=== PATIENT | female | born 1995 | race American Indian/Alaskan Native ===

== ENCOUNTER 2016-12-13 22:33 | Emergency (ER) | payer MEDICAID ==
[2016-12-13 23:58] VITALS: BP 139/92
[2016-12-14 00:46] LABS: Basophils % (Auto) 0.9 % (0.0-1.8); Eosinophils % (Auto) 2.1 % (0.0-4.3); Hematocrit 39.2 % (30.3-42.9); Hemoglobin 13.3 gm/dl (10.1-14.3); Mean Corpuscular HGB Conc 34 % (30-34); Mean Corpuscular Hemoglobin 29 pg (28-32); Mean Corpuscular Volume 87 fl (79-97); Platelet Count 291 K/mm3 (140-440); Red Blood Count 4.52 M/mm3 (3.65-5.03); Red Cell Distribution Width 13.1 % (13.2-15.2)
[2016-12-14 01:01] LABS: Anion Gap 16 mmol/L; BUN/Creatinine Ratio 10; Blood Urea Nitrogen 9 mg/dL (7-17); Calcium 9.4 mg/dL (8.4-10.2); Carbon Dioxide 28 mmol/L (22-30); Chloride 94.6 mmol/L (98-107); Glucose 289 mg/dL (65-100); Potassium 3.9 mmol/L (3.6-5.0); Sodium 135 mmol/L (137-145)
--- NOTE | 2016-12-14 01:31 | Ultrasound Report ---
FINAL REPORT EXAM: US OB \T\lt; = 14 WEEKS FETUS HISTORY: vaginal bleeding TECHNIQUE: Transabdominal imaging was obtained of the pelvis. FINDINGS: The uterus measures 8.2 cm x 3.8 cm x 4 cm. There is no evidence of an IUP at this time. The endometrial thickness is 12.3 millimeters. Free fluid is not seen. The right ovary is normal in size contour and echotexture measuring 2.8 cm x 2.2 cm x 2.4 cm. The left lobe measures 3.1 cm x 2.0 cm x 2.4 cm. The adnexa are unremarkable. IMPRESSION: Normal-appearing uterus and ovaries. No evidence of an IUP at this time.
--- NOTE | 2016-12-14 01:32 | Ultrasound Report ---
FINAL REPORT EXAM: US OB TRANSVAGINAL HISTORY: vaginal bleeding TECHNIQUE: Routine transvaginal imaging was obtained of the pelvis. Doppler interrogation of the uterus was obtained. FINDINGS: The uterus is anteverted measuring 8.2 cm x 3.8 cm x 4 cm. There is no evidence of an IUP at this time. The endometrial thickness is 12.3 millimeters. Free fluid is not seen. The maternal ovaries are appropriate size contour and echotexture. The right ovary measures 2.8 cm x 2.2 cm x 2.4 cm. The left ovary measures 3.1 cm x 2.0 cm x 2.4 cm. IMPRESSION: Normal-appearing uterus and ovaries. No evidence of an IUP or ectopic at this time.
== END 2016-12-14 05:22 | disposition left against medical advice (07) ==
LOC: ED 22:33
DX: R10.9 Unspecified abdominal pain (principal); Z53.21 Procedure and treatment not carried out due to patient leaving prior to being seen by health care provider
CPT/HCPCS: 36415; 76801; 76817; 80048; 84703; 85025

== ENCOUNTER 2016-12-26 09:40 | Emergency (ER) | payer MEDICAID ==
[2016-12-26 11:36] LABS: Basophils % (Auto) 0.6 % (0.0-1.8); Eosinophils % (Auto) 2.1 % (0.0-4.3); Hematocrit 41.2 % (30.3-42.9); Hemoglobin 13.9 gm/dl (10.1-14.3); Mean Corpuscular HGB Conc 34 % (30-34); Mean Corpuscular Hemoglobin 29 pg (28-32); Mean Corpuscular Volume 85 fl (79-97); Platelet Count 317 K/mm3 (140-440); Red Blood Count 4.85 M/mm3 (3.65-5.03); White Blood Count 8.8 K/mm3 (4.5-11.0)
[2016-12-26 11:55] LABS: Alanine Aminotransferase 29 units/L (7-56); Albumin 4.3 g/dL (3.9-5); Alkaline Phosphatase 162 units/L (35-129); Anion Gap 19 mmol/L; BUN/Creatinine Ratio 9; Blood Urea Nitrogen 8 mg/dL (7-17); Calcium 9.8 mg/dL (8.4-10.2); Carbon Dioxide 29 mmol/L (22-30); Chloride 88.1 mmol/L (98-107); Lipase 28 units/L (13-60); Potassium 4.7 mmol/L (3.6-5.0); Sodium 131 mmol/L (137-145); Total Protein 8.7 g/dL (6.3-8.2)
[2016-12-26 12:08] LABS: Glucose 557 mg/dL (65-100)
[2016-12-26] MEDS ORDERED: NACL 0.9% 1000 ML 1,000 ML IV ONE ×2 (13:22→13:30)
--- NOTE | 2016-12-26 13:31 | Emergency Department Report ---
ED General Adult HPI - General Chief complaint: Abdominal Pain Stated complaint: VOMITING, BLURRED VISION Time Seen by Provider: 12/26/16 13:17 Source: patient, RN notes reviewed, old records reviewed Mode of arrival: Ambulatory Limitations: No Limitations - History of Present Illness Initial comments: This is a 21-year-old female who was previously unknown to this provider. She does not have a local primary care doctor, and she denies chronic medical conditions. She presents to the ER with close difficulty catching my breath" also complains diffuse abdominal cramping, nausea, vomiting, diarrhea, decreased appetite, nonspecific blurry vision. Her symptoms are constant. They have no exacerbating or relieving factors. She has no dysuria or hematuria. No fevers or chills. No chest pain. She is not diabetic as far she is aware of. -: Gradual Location: abdomen Quality: aching Consistency: constant Improves with: none Worsens with: none Associated Symptoms: loss of appetite, malaise, shortness of breath, weakness. denies: chest pain - Related Data Previous Rx's Medication Instructions Recorded Last Taken Type Clotrimazole 45 gm VG QHS #3 cream.appl 12/26/16 Unknown Rx Ondansetron [Zofran Odt] 4 mg PO Q8HR PRN #20 tab.rapdis 12/26/16 Unknown Rx metFORMIN [Glucophage] 500 mg PO QDAY #60 tab 12/26/16 Unknown Rx Allergies Allergy/AdvReac Type Severity Reaction Status Date / Time No Known Allergies Allergy Unverified 12/13/16 23:58 ED Review of Systems ROS: Stated complaint: VOMITING, BLURRED VISION Other details as noted in HPI Constitutional: malaise. denies: fever Eyes: denies: vision change ENT: denies: epistaxis Respiratory: shortness of breath Cardiovascular: denies: chest pain Gastrointestinal: abdominal pain Genitourinary: frequency. denies: dysuria Musculoskeletal: denies: back pain Skin: lesions Neurological: weakness ED Past Medical Hx - Past Medical History Previous Medical History?: No - Surgical History Past Surgical History?: No - Social History Smoking Status: Current Every Day Smoker Substance Use Type: Alcohol - Medications Home Medications: Home Medications Medication Instructions Recorded Confirmed Last Taken Type Clotrimazole 45 gm VG QHS #3 cream.appl 12/26/16 Unknown Rx Ondansetron [Zofran Odt] 4 mg PO Q8HR PRN #20 tab.rapdis 12/26/16 Unknown Rx metFORMIN [Glucophage] 500 mg PO QDAY #60 tab 12/26/16 Unknown Rx ED Physical Exam - General Limitations: No Limitations General appearance: alert, in no apparent distress - Head Head exam: Present: atraumatic, normocephalic - Eye Eye exam: Present: normal appearance, EOMI. Absent: nystagmus - ENT ENT exam: Present: normal exam, normal orophraynx, mucous membranes moist, normal external ear exam - Neck Neck exam: Present: normal inspection, full ROM - Respiratory Respiratory exam: Present: normal lung sounds bilaterally, other (on the left lateral breast, there is a punctate erythematous lesion, with minimal induration. There is no streaking, crepitus or fluctuance. During the breast examination, escorted by viktor Tapia). Absent: respiratory distress, chest wall tenderness - Cardiovascular Cardiovascular Exam: Present: normal rhythm, tachycardia, normal heart sounds. Absent: systolic murmur, diastolic murmur, rubs, gallop - GI/Abdominal GI/Abdominal exam: Present: soft, normal bowel sounds. Absent: distended, tenderness, guarding, rebound, rigid, pulsatile mass - Extremities Exam Extremities exam: Present: normal inspection, full ROM, normal capillary refill. Absent: pedal edema, joint swelling, calf tenderness - Back Exam Back exam: Present: normal inspection, full ROM. Absent: tenderness, paraspinal tenderness - Neurological Exam Neurological exam: Present: alert, oriented X3, normal gait, other (Extraocular movements intact. Tongue midline. No facial droop. Facial sensation intact to light touch in the V1, V2, V3 distribution bilaterally. 5 and 5 strength in 4 extremities.. Sensation is intact to light touch in 4 extremities.). Absent : motor sensory deficit - Psychiatric Psychiatric exam: Present: anxious - Skin Skin exam: Present: warm, erythema ED Course Vital Signs 12/26/16 12/26/16 12/26/16 10:48 14:00 14:16 Temperature 98.5 F Pulse Rate 100 H 92 H 79 Respiratory 20 22 17 Rate Blood Pressure 125/87 103/73 103/73 O2 Sat by Pulse 97 96 100 Oximetry 12/26/16 12/26/16 12/26/16 14:30 14:46 15:00 Temperature Pulse Rate 75 82 101 H Respiratory 13 11 L 15 Rate Blood Pressure 110/72 110/72 110/72 O2 Sat by Pulse 100 100 100 Oximetry - Reevaluation(s) Reevaluation #1: 12/26/16 14:17 Differential diagnosis, including but not limited to: Pneumonia, new onset diabetes, diabetic ketoacidosis, urinary tract infection Assessment and plan: 12/26/16 14:17 21-year-old female with nonspecific numerous constitutional symptoms. She is afebrile with reassuring vital signs, clinically sober, walks with steady gait, has a GCS of 15, with an anion score of 0. Visual acuity is intact bilaterally to direct confrontation, finger counting, color perception, reading at a close distance. Urinalysis is not consistent with urinary tract infection, abdomen is soft and benign, breast exam done shows a punctate erythematous lesion, may be very early cellulitis, less than 2 cm, does not require incision and drainage. She is hyperglycemic without anion gap acidosis. 3 the chest is pending, patient given IV fluids and insulin. The patient is in no distress at this time, and it texting on a cellular phone. Reevaluation #2: 12/26/16 14:57 X-ray of the chest is negative. Accu-Chek is improved. Tachycardia resolved. Patient is resting comfortably in no distress. Patient's left breast lesion can be cared for with soap and water and general hygiene. Patient will be started empirically on metformin. She is instructed to follow-up in outpatient primary care doctor. Return precautions are reviewed. Reevaluation #3: 12/27/16 15:36 Reevaluation #4: 12/26/16 15:54 Gynecologic examination: Escorted by nurse Kavitha Crocker: Whitish vaginal discharge is noted. This is suggestive of a yeast infection. Patient is instructed as to the importance of glycemic control. She will be discharged with clotrimazole prescription. ED Medical Decision Making - Lab Data Result diagrams: 12/26/16 11:20 12/26/16 11:20 Vital Signs 12/26/16 12/26/16 10:48 14:00 Temperature 98.5 F Pulse Rate 100 H 92 H Respiratory 20 22 Rate Blood Pressure 125/87 103/73 O2 Sat by Pulse 97 96 Oximetry Lab Results 12/26/16 12/26/16 12/26/16 Range/Units 11:20 11:20 13:20 WBC 8.8 (4.5-11.0) K/mm3 RBC 4.85 (3.65-5.03) M/mm3 Hgb 13.9 (10.1-14.3) gm/dl Hct 41.2 (30.3-42.9) % MCV 85 (79-97) fl MCH 29 (28-32) pg MCHC 34 (30-34) % RDW 13.0 L (13.2-15.2) % Plt Count 317 (140-440) K/mm3 Lymph % (Auto) 24.5 (13.4-35.0) % [place] % (Auto) 7.8 H (0.0-7.3) % Eos % (Auto) 2.1 (0.0-4.3) % Baso % (Auto) 0.6 (0.0-1.8) % Lymph # 2.2 (1.2-5.4) K/mm3 [place] # 0.7 (0.0-0.8) K/mm3 Eos # 0.2 (0.0-0.4) K/mm3 Baso # 0.1 (0.0-0.1) K/mm3 Seg Neutrophils % 65.0 (40.0-70.0) % Seg Neutrophils # 5.7 (1.8-7.7) K/mm3 Sodium 131 L (137-145) mmol/L Potassium 4.7 (3.6-5.0) mmol/L Chloride 88.1 L (98-107) mmol/L Carbon Dioxide 29 (22-30) mmol/L Anion Gap 19 mmol/L BUN 8 (7-17) mg/dL Creatinine 0.9 (0.7-1.2) mg/dL Estimated GFR > 60 ml/min BUN/Creatinine Ratio 9 % Glucose 557 H* (65-100) mg/dL Calcium 9.8 (8.4-10.2) mg/dL Total Bilirubin 0.40 (0.1-1.2) mg/dL AST 19 (5-40) units/L ALT 29 (7-56) units/L Alkaline Phosphatase 162 H (35-129) units/L Total Protein 8.7 H (6.3-8.2) g/dL Albumin 4.3 (3.9-5) g/dL Albumin/Globulin Ratio 1.0 % Lipase 28 (13-60) units/L Urine Color Straw (Yellow) Urine Turbidity Clear (Clear) Urine pH 6.0 (5.0-7.0) Ur Specific [place] 1.026 (1.003-1.030) Urine Protein <15 mg/dl (Negative) mg/dL Urine Glucose (UA) >=500 (Negative) mg/dL Urine Ketones 20 (Negative) mg/dL Urine Blood Neg (Negative) Urine Nitrite Neg (Negative) Urine Bilirubin Neg (Negative) Urine Urobilinogen < 2.0 (<2.0) mg/dL Ur Leukocyte Esterase Neg (Negative) Urine WBC (Auto) 2.0 (0.0-6.0) /HPF Urine RBC (Auto) < 1.0 (0.0-6.0) /HPF U Epithel Cells (Auto) < 1.0 (0-13.0) /HPF Urine Mucus Few /HPF Urine HCG, Qual (Negative) 12/26/16 Range/Units 13:20 WBC (4.5-11.0) K/mm3 RBC (3.65-5.03) M/mm3 Hgb (10.1-14.3) gm/dl Hct (30.3-42.9) % MCV (79-97) fl MCH (28-32) pg MCHC (30-34) % RDW (13.2-15.2) % Plt Count (140-440) K/mm3 Lymph % (Auto) (13.4-35.0) % [place] % (Auto) (0.0-7.3) % Eos % (Auto) (0.0-4.3) % Baso % (Auto) (0.0-1.8) % Lymph # (1.2-5.4) K/mm3 [place] # (0.0-0.8) K/mm3 Eos # (0.0-0.4) K/mm3 Baso # (0.0-0.1) K/mm3 Seg Neutrophils % (40.0-70.0) % Seg Neutrophils # (1.8-7.7) K/mm3 Sodium (137-145) mmol/L Potassium (3.6-5.0) mmol/L Chloride (98-107) mmol/L Carbon Dioxide (22-30) mmol/L Anion Gap mmol/L BUN (7-17) mg/dL Creatinine (0.7-1.2) mg/dL Estimated GFR ml/min BUN/Creatinine Ratio % Glucose (65-100) mg/dL Calcium (8.4-10.2) mg/dL Total Bilirubin (0.1-1.2) mg/dL AST (5-40) units/L ALT (7-56) units/L Alkaline Phosphatase (35-129) units/L Total Protein (6.3-8.2) g/dL Albumin (3.9-5) g/dL Albumin/Globulin Ratio % Lipase (13-60) units/L Urine Color (Yellow) Urine Turbidity (Clear) Urine pH (5.0-7.0) Ur Specific [place] (1.003-1.030) Urine Protein (Negative) mg/dL Urine Glucose (UA) (Negative) mg/dL Urine Ketones (Negative) mg/dL Urine Blood (Negative) Urine Nitrite (Negative) Urine Bilirubin (Negative) Urine Urobilinogen (<2.0) mg/dL Ur Leukocyte Esterase (Negative) Urine WBC (Auto) (0.0-6.0) /HPF Urine RBC (Auto) (0.0-6.0) /HPF U Epithel Cells (Auto) (0-13.0) /HPF Urine Mucus /HPF Urine HCG, Qual Negative (Negative) - Radiology Data Radiology results: pending, image reviewed interpreted by me: X-ray the chest is negative for acute disease Critical care attestation.: If time is entered above; I have spent that time in minutes in the direct care of this critically ill patient, excluding procedure time. ED Disposition Clinical Impression: Hyperglycemia Disposition: DC-01 TO HOME OR SELFCARE Is pt being admited?: No Does the pt Need Aspirin: No Condition: Stable Instructions: Diabetes Mellitus Type 2 in Adults (ED) Additional Instructions: As we discussed, symptoms most likely coming from new onset adult diabetes. Decrease consumption of simple sugars, starches, carbohydrates. Consume plenty of fruits, fibers, vegetables. Begin a physical fitness activity/regime. Follow-up with the primary care doctor within the next month. It is very important to follow-up with an outpatient primary care doctor. Long-term complications of diabetes and hyperglycemia includes stroke, heart attack, disability, , paralysis, loss of quality of life. Return to the ER right away with few pain, worse pain, migration of pain, fevers, chills, lethargy, irritability, projectile vomiting, change in mental status, inability to tolerate liquid feeds. Metformin is a very good medication for diabetes, complications include abdominal cramping, nausea and vomiting. Take the metformin as directed, take the nausea medication as needed. Prescriptions: Clotrimazole 45 gm VG QHS #3 cream.appl metFORMIN [Glucophage] 500 mg PO QDAY #60 tab Ondansetron [Zofran Odt] 4 mg PO Q8HR PRN #20 tab.rapdis PRN Reason: Nausea Referrals: PRIMARY CARE, [Primary Care Provider] - 3-5 Days AVELINO GOMEZ MD [Staff Physician] - 3-5 Days [facility] [Provider Group] - 3-5 Days
[2016-12-26 14:09] LABS: Bilirubin,Urine NEG (Negative); Blood,Urine NEG (Negative); Ketones,Urine 20 mg/dL (Negative); Leukocyte Esterase,Urine NEG (Negative); Mucus,Urine FEW /HPF; Nitrite,Urine NEG (Negative); Protein,Urine <15 mg/dL mg/dL (Negative); RBC,Urine < 1.0 /HPF (0.0-6.0); Urobilinogen,Urine < 2.0 mg/dL (<2.0)
[2016-12-26 14:55] VITALS: BP 110/72
--- NOTE | 2016-12-26 15:09 | XRay Report ---
Single view chest: History: Dyspnea. Findings: Normal cardiomediastinal silhouette. Trachea is midline. No consolidation, pneumothorax or pleural effusion. Impression: No acute cardiopulmonary findings.
== END 2016-12-26 16:26 | disposition home or self-care (01) ==
LOC: ED 09:40
DX: R73.9 Hyperglycemia, unspecified (principal); R06.00 Dyspnea, unspecified; R10.84 Generalized abdominal pain; R11.2 Nausea with vomiting, unspecified; R63.0 Anorexia; F17.200 Nicotine dependence, unspecified, uncomplicated
CPT/HCPCS: 36415; 71010; 80053; 81001; 81025; 82962; 83690; 85025; 87210; 87591; 96361; 96374; 99284; J7030; J1815

== ENCOUNTER 2017-01-12 12:03 | Inpatient (IN) | payer MEDICAID ==
--- NOTE | 2017-01-12 12:48 | Emergency Department Report ---
Chief Complaint: Hyperglycemia Stated Complaint: HYPERGLYCEMIA - HPI History of Present Illness: pt is 21 y/o aaf dx with DMII on metformin seen on 12/26/2016 for same advises unable to follow up with pcp referral due to finances presents today for polydypsia, polyuria, dizziness with intermittent n/v last n/v this am. - Exam Vital Signs: Vital Signs 01/12/17 12:22 Temperature 98.5 F Pulse Rate 98 H Respiratory 16 Rate Blood Pressure 138/87 O2 Sat by Pulse 98 Oximetry MSE screening note: Focused history and physical exam performed. Due to findings the following was ordered: ED Disposition for MSE Condition: Stable
[2017-01-12 13:11] LABS: Eosinophils % (Auto) 2.7 % (0.0-4.3); Hematocrit 42.5 % (30.3-42.9); Hemoglobin 14.2 gm/dl (10.1-14.3); Mean Corpuscular HGB Conc 33 % (30-34); Mean Corpuscular Hemoglobin 28 pg (28-32); Mean Corpuscular Volume 85 fl (79-97); Platelet Count 328 K/mm3 (140-440); Red Blood Count 5.03 M/mm3 (3.65-5.03); Red Cell Distribution Width 13.1 % (13.2-15.2); White Blood Count 6.1 K/mm3 (4.5-11.0)
[2017-01-12 13:19] LABS: Alanine Aminotransferase 16 units/L (7-56); Albumin 4.5 g/dL (3.9-5); Albumin/Globulin Ratio 1.1 %; Alkaline Phosphatase 136 units/L (35-129); Anion Gap 20 mmol/L; BUN/Creatinine Ratio 10; Blood Urea Nitrogen 8 mg/dL (7-17); Calcium 9.8 mg/dL (8.4-10.2); Carbon Dioxide 25 mmol/L (22-30); Chloride 90.3 mmol/L (98-107); Glucose 388 mg/dL (65-100); Potassium 4.1 mmol/L (3.6-5.0); Sodium 131 mmol/L (137-145); Total Protein 8.7 g/dL (6.3-8.2)
[2017-01-13] MEDS ORDERED: NACL 0.9% 1000 ML 1,000 ML IV ONE ×2 (00:02→00:03)
[2017-01-13] MEDS ORDERED: ZOFRAN IV ONE (00:16)
--- NOTE | 2017-01-13 00:36 | Emergency Department Report ---
ED General Adult HPI - General Chief complaint: Hyperglycemia Stated complaint: HYPERGLYCEMIA Time Seen by Provider: 01/13/17 00:02 Source: patient Mode of arrival: Ambulatory Limitations: No Limitations - History of Present Illness Initial comments: 21-year-old female with a past medical history recently diagnosed diabetes presents to the hospital with uncontrolled blood sugars. Patient was seen and evaluated here in the ER on December 26. Patient is diagnosed with diabetes and started on metformin 500 mg twice a day. Patient is taking this medication twice a day despite discharge summary that states once a day prescribed. Patient states her sugar continues to be uncontrolled and she is experiencing increased thirst, increased urinary frequency, visual disturbances, and generalized weakness and fatigue. Patient has had vomiting after food intake times one month but states she is tolerating water. She has not follow-up since her ER visit a recently discovered she has active Medicaid insurance. No abdominal pain, fever, or dysuria reported. Severity scale (0 -10): 0 - Related Data Previous Rx's Medication Instructions Recorded Last Taken Type Clotrimazole 45 gm VG QHS #3 cream.appl 12/26/16 Unknown Rx Ondansetron [Zofran Odt] 4 mg PO Q8HR PRN #20 tab.rapdis 12/26/16 Unknown Rx metFORMIN [Glucophage] 500 mg PO QDAY #60 tab 12/26/16 Unknown Rx Allergies Allergy/AdvReac Type Severity Reaction Status Date / Time No Known Allergies Allergy Verified 01/13/17 01:25 ED Review of Systems ROS: Stated complaint: HYPERGLYCEMIA Other details as noted in HPI Comment: All other systems reviewed and negative Other: Constitutional: No fevers chills Eyes: No eye pain visual changes ENT: No ear pain or throat pain Neck: Denies pain Respiratory: Denies cough wheezing shortness of breath Cardiovascular: Denies chest pain, palpitations, syncope GI: Denies abdominal pain,diarrhea : Denies dysuria Musculoskeletal: Denies back pain, joint swelling Skin: Denies rash, lesions, erythema Neurologic: Denies headache, numbness, weakness Psychiatric: Denies suicidal ideation, hallucinations ED Past Medical Hx - Past Medical History Hx Diabetes: Yes - Surgical History Past Surgical History?: No - Social History Smoking Status: Current Every Day Smoker Substance Use Type: None - Medications Home Medications: Home Medications Medication Instructions Recorded Confirmed Last Taken Type Clotrimazole 45 gm VG QHS #3 cream.appl 12/26/16 Unknown Rx Ondansetron [Zofran Odt] 4 mg PO Q8HR PRN #20 tab.rapdis 12/26/16 Unknown Rx metFORMIN [Glucophage] 500 mg PO QDAY #60 tab 12/26/16 Unknown Rx ED Physical Exam - General Limitations: No Limitations - Other Other exam information: General: No limitations, patient is alert in no acute distress Head exam: Atraumatic, normocephalic Eyes exam: Normal appearance, pupils equal reactive to light, extraocular movements intact ENT: Moist mucous membrane, normal oropharynx Neck exam: Normal inspection, full range of motion, no meningismus nontender Respiratory exam: Clear to auscultation bilateral, no wheezes, rales, crackles Cardiovascular: Normal rate and rhythm, normal heart sounds Abdomen: Soft, nondistended, and nontender, with normal bowel sounds, no rebound, or guarding Extremity: Full range of motion normal inspection no deformity Back: Normal Inspection, full range of motion, no tenderness Neurologic: Alert, oriented x3, cranial nerves intact, no motor or sensory deficit Psychiatric: normal affect, normal mood Skin: Warm, dry, intact ED Course Vital Signs 01/12/17 01/12/17 12:22 23:02 Temperature 98.5 F 97.5 F L Pulse Rate 98 H 85 Respiratory 16 18 Rate Blood Pressure 138/87 129/85 O2 Sat by Pulse 98 100 Oximetry - Reevaluation(s) Reevaluation #1: 01/13/17 02:01 Patient treated with Zofran, normal saline and insulin in the ED ED Medical Decision Making - Lab Data Result diagrams: 01/12/17 12:48 01/12/17 12:48 Lab Results 01/12/17 01/12/17 01/12/17 Range/Units 12:25 12:48 12:48 WBC 6.1 (4.5-11.0) K/mm3 RBC 5.03 (3.65-5.03) M/mm3 Hgb 14.2 (10.1-14.3) gm/dl Hct 42.5 (30.3-42.9) % MCV 85 (79-97) fl MCH 28 (28-32) pg MCHC 33 (30-34) % RDW 13.1 L (13.2-15.2) % Plt Count 328 (140-440) K/mm3 Lymph % (Auto) 32.5 (13.4-35.0) % [place] % (Auto) 9.2 H (0.0-7.3) % Eos % (Auto) 2.7 (0.0-4.3) % Baso % (Auto) 1.0 (0.0-1.8) % Lymph # 2.0 (1.2-5.4) K/mm3 [place] # 0.6 (0.0-0.8) K/mm3 Eos # 0.2 (0.0-0.4) K/mm3 Baso # 0.1 (0.0-0.1) K/mm3 Seg Neutrophils % 54.6 (40.0-70.0) % Seg Neutrophils # 3.3 (1.8-7.7) K/mm3 VBG pH (7.320-7.420) Sodium 131 L (137-145) mmol/L Potassium 4.1 (3.6-5.0) mmol/L Chloride 90.3 L (98-107) mmol/L Carbon Dioxide 25 (22-30) mmol/L Anion Gap 20 mmol/L BUN 8 (7-17) mg/dL Creatinine 0.8 (0.7-1.2) mg/dL Estimated GFR > 60 ml/min BUN/Creatinine Ratio 10 % Glucose 388 H (65-100) mg/dL POC Glucose 392 H (70-105) Ketones Quantitative (Negative) Calcium 9.8 (8.4-10.2) mg/dL Total Bilirubin 0.50 (0.1-1.2) mg/dL AST 13 (5-40) units/L ALT 16 (7-56) units/L Alkaline Phosphatase 136 H (35-129) units/L Total Protein 8.7 H (6.3-8.2) g/dL Albumin 4.5 (3.9-5) g/dL Albumin/Globulin Ratio 1.1 % Urine Color (Yellow) Urine Turbidity (Clear) Urine pH (5.0-7.0) Ur Specific [place] (1.003-1.030) Urine Protein (Negative) mg/dL Urine Glucose (UA) (Negative) mg/dL Urine Ketones (Negative) mg/dL Urine Blood (Negative) Urine Nitrite (Negative) Ur Reducing Substances Urine Bilirubin (Negative) Urine Ictotest Urine Urobilinogen (<2.0) mg/dL Ur Leukocyte Esterase (Negative) Urine WBC (Auto) (0.0-6.0) /HPF Urine RBC (Auto) (0.0-6.0) /HPF U Epithel Cells (Auto) (0-13.0) /HPF Hyaline Casts /LPF Urine HCG, Qual (Negative) 01/12/17 01/12/17 01/12/17 Range/Units 12:48 22:56 23:04 WBC (4.5-11.0) K/mm3 RBC (3.65-5.03) M/mm3 Hgb (10.1-14.3) gm/dl Hct (30.3-42.9) % MCV (79-97) fl MCH (28-32) pg MCHC (30-34) % RDW (13.2-15.2) % Plt Count (140-440) K/mm3 Lymph % (Auto) (13.4-35.0) % [place] % (Auto) (0.0-7.3) % Eos % (Auto) (0.0-4.3) % Baso % (Auto) (0.0-1.8) % Lymph # (1.2-5.4) K/mm3 [place] # (0.0-0.8) K/mm3 Eos # (0.0-0.4) K/mm3 Baso # (0.0-0.1) K/mm3 Seg Neutrophils % (40.0-70.0) % Seg Neutrophils # (1.8-7.7) K/mm3 VBG pH 7.313 L (7.320-7.420) Sodium (137-145) mmol/L Potassium (3.6-5.0) mmol/L Chloride (98-107) mmol/L Carbon Dioxide (22-30) mmol/L Anion Gap mmol/L BUN (7-17) mg/dL Creatinine (0.7-1.2) mg/dL Estimated GFR ml/min BUN/Creatinine Ratio % Glucose (65-100) mg/dL POC Glucose 426 H (70-105) Ketones Quantitative Small (Negative) Calcium (8.4-10.2) mg/dL Total Bilirubin (0.1-1.2) mg/dL AST (5-40) units/L ALT (7-56) units/L Alkaline Phosphatase (35-129) units/L Total Protein (6.3-8.2) g/dL Albumin (3.9-5) g/dL Albumin/Globulin Ratio % Urine Color (Yellow) Urine Turbidity (Clear) Urine pH (5.0-7.0) Ur Specific [place] (1.003-1.030) Urine Protein (Negative) mg/dL Urine Glucose (UA) (Negative) mg/dL Urine Ketones (Negative) mg/dL Urine Blood (Negative) Urine Nitrite (Negative) Ur Reducing Substances Urine Bilirubin (Negative) Urine Ictotest Urine Urobilinogen (<2.0) mg/dL Ur Leukocyte Esterase (Negative) Urine WBC (Auto) (0.0-6.0) /HPF Urine RBC (Auto) (0.0-6.0) /HPF U Epithel Cells (Auto) (0-13.0) /HPF Hyaline Casts /LPF Urine HCG, Qual (Negative) 01/13/17 01/13/17 01/13/17 Range/Units 00:14 00:36 01:55 WBC (4.5-11.0) K/mm3 RBC (3.65-5.03) M/mm3 Hgb (10.1-14.3) gm/dl Hct (30.3-42.9) % MCV (79-97) fl MCH (28-32) pg MCHC (30-34) % RDW (13.2-15.2) % Plt Count (140-440) K/mm3 Lymph % (Auto) (13.4-35.0) % [place] % (Auto) (0.0-7.3) % Eos % (Auto) (0.0-4.3) % Baso % (Auto) (0.0-1.8) % Lymph # (1.2-5.4) K/mm3 [place] # (0.0-0.8) K/mm3 Eos # (0.0-0.4) K/mm3 Baso # (0.0-0.1) K/mm3 Seg Neutrophils % (40.0-70.0) % Seg Neutrophils # (1.8-7.7) K/mm3 VBG pH (7.320-7.420) Sodium (137-145) mmol/L Potassium (3.6-5.0) mmol/L Chloride (98-107) mmol/L Carbon Dioxide (22-30) mmol/L Anion Gap mmol/L BUN (7-17) mg/dL Creatinine (0.7-1.2) mg/dL Estimated GFR ml/min BUN/Creatinine Ratio % Glucose (65-100) mg/dL POC Glucose > 500 H 278 H (70-105) Ketones Quantitative (Negative) Calcium (8.4-10.2) mg/dL Total Bilirubin (0.1-1.2) mg/dL AST (5-40) units/L ALT (7-56) units/L Alkaline Phosphatase (35-129) units/L Total Protein (6.3-8.2) g/dL Albumin (3.9-5) g/dL Albumin/Globulin Ratio % Urine Color Red (Yellow) Urine Turbidity Clear (Clear) Urine pH 6.0 (5.0-7.0) Ur Specific [place] 1.025 (1.003-1.030) Urine Protein <15 mg/dl (Negative) mg/dL Urine Glucose (UA) >=500 (Negative) mg/dL Urine Ketones 20 (Negative) mg/dL Urine Blood Neg (Negative) Urine Nitrite Neg (Negative) Ur Reducing Substances Not Reportable Urine Bilirubin Neg (Negative) Urine Ictotest Not Reportable Urine Urobilinogen < 2.0 (<2.0) mg/dL Ur Leukocyte Esterase Sm (Negative) Urine WBC (Auto) 3.0 (0.0-6.0) /HPF Urine RBC (Auto) 4.0 (0.0-6.0) /HPF U Epithel Cells (Auto) 13.0 (0-13.0) /HPF Hyaline Casts 1 /LPF Urine HCG, Qual Negative (Negative) - Medical Decision Making Plan to admit patient to hospital for better glucose control and medication adjustment. - Differential Diagnosis DKA, hyperglycemia, dehydration, UTI Critical Care Time: No Critical care attestation.: If time is entered above; I have spent that time in minutes in the direct care of this critically ill patient, excluding procedure time. ED Disposition Clinical Impression: Uncontrolled diabetes mellitus, Ketosis, Failure of outpatient treatment Disposition: OP ADMIT IP TO THIS HOSP Is pt being admited?: Yes Does the pt Need Aspirin: No Condition: Stable Time of Disposition: 01:56 (Dr Bey/hosp)
[2017-01-13 00:56] LABS: Bilirubin,Urine NEG (Negative); Blood,Urine NEG (Negative); Ketones,Urine 20 mg/dL (Negative); Leukocyte Esterase,Urine SM (Negative); Nitrite,Urine NEG (Negative); Protein,Urine <15 mg/dL mg/dL (Negative); Urobilinogen,Urine < 2.0 mg/dL (<2.0)
[2017-01-13] MEDS ORDERED: D50W (25GM) Syringe IV PRN ×2 (01:15→08:15)
[2017-01-13] MEDS ORDERED: ZOFRAN IV PRN (01:15)
[2017-01-13] MEDS ORDERED: PROVENTIL IH PRN (01:15)
--- NOTE | 2017-01-13 01:15 | History and Physical Report ---
History of Present Illness Chief complaint: My blood sugar is high, and i feel sick History of present illness: 21 YO Female with DM, Medication Noncompliance, Nicotine Dependence presents to ED for evaluation. Pt states that she has experienced high blood glucose levels for the past 3 days with worsening symptoms over the past 1 day. Pt acknowledges nausea, vomiting, increased thirst, generalized weakness, fatigue, polydipsia, polyuria, and blurred vision. Pt seen and evaluated in ED and found to have serum glucose above 400 and positive ketones. Pt initiated on DKA protocol. Pt denies fever, chills, CP, Palpitations, productive cough, trauma, medication noncompliance, abdominal pain, hematuria, or recent ill contacts. Past History Past Medical History: diabetes, other (Nicotine Dependence) Past Surgical History: No surgical history, Other (reviewed) Social history: single, lives with family, smoking. denies: alcohol abuse, prescription drug abuse Family history: diabetes, hypertension Medications and Allergies Allergies Allergy/AdvReac Type Severity Reaction Status Date / Time No Known Allergies Allergy Verified 01/13/17 01:25 Home Medications Medication Instructions Recorded Confirmed Last Taken Type metFORMIN [Glucophage] 500 mg PO QDAY #60 tab 12/26/16 01/13/17 Unknown Rx Review of Systems Constitutional: no weight loss, no weight gain, no fever, no chills Ears, nose, mouth and throat: no ear pain, no ear discharge, no tinnitis, no decreased hearing, no nose pain, no nasal congestion, no nasal discharge Breasts: no change in shape, no swelling, no mass Cardiovascular: no chest pain, no orthopnea, no palpitations, no rapid/ irregular heart beat, no edema, no syncope Respiratory: no cough, no cough with sputum, no excessive sputum, no hemoptysis , no shortness of breath Gastrointestinal: nausea, vomiting, no diarrhea, no constipation, no change in bowel habits, no hematemesis, no coffee ground emesis Genitourinary Female: no pelvic pain, no flank pain, no menorrhagia, no dysuria , no urinary frequency, no urgency Rectal: no pain, no incontinence, no bleeding Musculoskeletal: no neck stiffness, no neck pain, no shooting arm pain, no arm numbness/tingling, no low back pain, no shooting leg pain, no leg numbness/ tingling Integumentary: no rash, no pruritis, no redness, no sores, no wounds, no jaundice Neurological: no head injury, no transient paralysis, no paralysis, no weakness , no parathesias, no numbness, no tingling Psychiatric: no anxiety, no memory loss, no change in sleep habits, no sleep disturbances, no insomnia, no hypersomnia, no change in appetite, no change in libido Endocrine: polyphagia, excessive thirst, polydipsia, polyuria, no cold intolerance, no heat intolerance Hematologic/Lymphatic: no easy bruising, no easy bleeding Allergic/Immunologic: no urticaria, no allergic rhinitis, no wheezing Exam - Constitutional Vitals: Temp Pulse Resp BP Pulse Ox 97.5 F L 85 18 129/85 100 01/12/17 23:02 01/12/17 23:02 01/12/17 23:02 01/12/17 23:02 01/12/17 23:02 General appearance: Present: mild distress, obese - EENT Eyes: Present: PERRL ENT: hearing intact, clear oral mucosa - Neck Neck: Present: supple, normal ROM - Respiratory Respiratory effort: normal Respiratory: bilateral: CTA - Cardiovascular Heart Sounds: Present: S1 & S2. Absent: rub, click - Extremities Extremities: pulses symmetrical, No edema Peripheral Pulses: within normal limits - Abdominal General gastrointestinal: Present: soft, non-tender, non-distended, normal bowel sounds Female genitourinary: Present: normal - Integumentary Integumentary: Present: clear, dry, clammy, decreased turgor - Musculoskeletal Musculoskeletal: generalized weakness - Psychiatric Psychiatric: appropriate mood/affect, intact judgment & insight - Neurologic Neurologic: CNII-XII intact, moves all extremities Results - Labs CBC & Chem 7: 01/12/17 12:48 01/13/17 01:36 Labs: Abnormal lab results 01/12/17 01/12/17 01/12/17 Range/Units 12:25 12:48 12:48 RDW 13.1 L (13.2-15.2) % [place] % (Auto) 9.2 H (0.0-7.3) % VBG pH (7.320-7.420) Sodium 131 L (137-145) mmol/L Chloride 90.3 L (98-107) mmol/L Glucose 388 H (65-100) mg/dL POC Glucose 392 H (70-105) Alkaline Phosphatase 136 H (35-129) units/L Total Protein 8.7 H (6.3-8.2) g/dL 01/12/17 01/12/17 01/13/17 Range/Units 22:56 23:04 00:14 RDW (13.2-15.2) % [place] % (Auto) (0.0-7.3) % VBG pH 7.313 L (7.320-7.420) Sodium (137-145) mmol/L Chloride (98-107) mmol/L Glucose (65-100) mg/dL POC Glucose 426 H > 500 H (70-105) Alkaline Phosphatase (35-129) units/L Total Protein (6.3-8.2) g/dL Assessment and Plan - Patient Problems (1) DKA (diabetic ketoacidoses) Current Visit: Yes Status: Acute Plan to address problem: DKA protocol: Admit to ICU, Insulin drip, serial bmp, monitor anion gap, monitor uop q shift, IVF resuscitation, The high probability of a clinically significant, sudden or life threatening deterioration of the [endocrine, renal, neurologic] system(s) required my full and direct attention, intervention and personal management. The aggregate critical care time was [65] minutes. This time is in addition to time spent performing reported procedures but includes the following: [x] Data Review and interpretation [x] Patient assessment and monitoring of vital signs [x] Documentation [x] Medication orders and management (2) Metabolic syndrome Current Visit: Yes Status: Acute Plan to address problem: lipid panel, low cholesterol diet, increased physical activity as discharge. (3) Obesity Current Visit: Yes Status: Acute Plan to address problem: Pt counseled, balanced diet, increased physical activity, (4) Hyponatremia syndrome Current Visit: Yes Status: Acute Plan to address problem: IVF resuscitation, repeat bmp (5) Nicotine dependence Current Visit: Yes Status: Acute Plan to address problem: Pt counseled, supportive care. (6) DVT prophylaxis Current Visit: Yes Status: Acute
[2017-01-13] MEDS ORDERED: NovoLIN R 100 UNITS in NACL 0.9% 99 ML IV SCH (02:00)
[2017-01-13 02:05] LABS: Anion Gap 21 mmol/L; BUN/Creatinine Ratio 11; Blood Urea Nitrogen 8 mg/dL (7-17); Calcium 9.1 mg/dL (8.4-10.2); Carbon Dioxide 22 mmol/L (22-30); Chloride 90.5 mmol/L (98-107); Glucose 312 mg/dL (65-100); Potassium 3.6 mmol/L (3.6-5.0); Sodium 130 mmol/L (137-145)
[2017-01-13] MEDS ORDERED: D5W/0.45% NACL/KCL 20 MEQ 20 MEQ/1,000 ML BAG IV SCH (06:00)
[2017-01-13 07:30] LABS: Anion Gap 18 mmol/L; BUN/Creatinine Ratio 10; Blood Urea Nitrogen 7 mg/dL (7-17); Calcium 8.3 mg/dL (8.4-10.2); Carbon Dioxide 23 mmol/L (22-30); Glucose 130 mg/dL (65-100); Potassium 3.5 mmol/L (3.6-5.0); Sodium 137 mmol/L (137-145)
[2017-01-13 09:05] LABS: Anion Gap 16 mmol/L; BUN/Creatinine Ratio 10; Blood Urea Nitrogen 7 mg/dL (7-17); Calcium 8.5 mg/dL (8.4-10.2); Carbon Dioxide 25 mmol/L (22-30); Glucose 124 mg/dL (65-100); Potassium 3.4 mmol/L (3.6-5.0); Sodium 138 mmol/L (137-145)
[2017-01-13] MEDS: NOVOLOG SUB-Q SCH ×3 (12:28→21:43)
--- NOTE | 2017-01-13 16:25 | Event Note ---
Date: 01/13/17 Patient seen and examined, she is no acute distress. reports that Metformin was making her sick at home and also she did not have any way to check her BG. she reports all this is new to her. Will downgrade to medsurge she denies any chest pain A1C is >12 will need insulin. Diabetic teaching and re-evaluate in am.
[2017-01-13 19:22] LABS: Anion Gap 19 mmol/L; BUN/Creatinine Ratio 11; Blood Urea Nitrogen 8 mg/dL (7-17); Carbon Dioxide 21 mmol/L (22-30); Chloride 92.9 mmol/L (98-107); Glucose 350 mg/dL (65-100); Potassium 4.2 mmol/L (3.6-5.0); Sodium 129 mmol/L (137-145)
[2017-01-14 01:06] VITALS: BP 108/60
[2017-01-14 02:01] LABS: BUN/Creatinine Ratio 14; Blood Urea Nitrogen 10 mg/dL (7-17); Calcium 9.1 mg/dL (8.4-10.2); Carbon Dioxide 18 mmol/L (22-30); Glucose 312 mg/dL (65-100)
[2017-01-14 02:02] LABS: Chloride 96.7 mmol/L (98-107); Sodium 130 mmol/L (137-145)
[2017-01-14 02:04] LABS: Anion Gap 20 mmol/L; Potassium 4.6 mmol/L (3.6-5.0)
[2017-01-14] MEDS: NOVOLOG SUB-Q SCH ×2 (09:03→13:03)
--- NOTE | 2017-01-14 09:45 | Discharge Summary ---
Providers - Providers Date of Admission: 01/13/17 01:15 Attending physician: DANIEL PANG MD Primary care physician: WOOL HAT HYDRAULICKER Hospitalization Reason for admission: DKA Condition: Stable Hospital course: 21 YO Female with DM, Medication Noncompliance, Nicotine Dependence presents to ED for evaluation. Pt states that she has experienced high blood glucose levels for the past 3 days with worsening symptoms over the past 1 day. Pt acknowledges nausea, vomiting, increased thirst, generalized weakness, fatigue, polydipsia, polyuria, and blurred vision. Pt seen and evaluated in ED and found to have serum glucose above 400 and positive ketones. Pt initiated on DKA protocol. Pt denies fever, chills, CP, Palpitations, productive cough, trauma, medication noncompliance, abdominal pain, hematuria, or recent ill contacts. (1) DKA (diabetic ketoacidoses) Patient was treated with IVF and DKA protocol. Diabetic education was provided and she was discharged on novolin 70/30 with a sliding scale. (2) Metabolic syndrome * Weight management discussed in detail on discharge (3) Obesity (4) Hyponatremia syndrome * Resolved (5) uncontrolled diabetes mellitus (6) Nicotine dependence: Counselling provided 15 mins time spent. Disposition: DC- TO HOME OR SELFCARE Time spent for discharge: 35 mins Core Measure Documentation - Palliative Care Palliative Care/ Comfort Measures: Not Applicable - Core Measures Any of the following diagnoses?: none - VTE Discharge Requirements Deep Vein Thrombosis/Pulmonary Embolism Present on Admission: No Exam - Physical Exam Narrative exam: VITAL SIGNS: Reviewed. GENERAL: The patient appeared well nourished and normally developed. Vital signs as documented. HEAD: No signs of head trauma. EYES: Pupils are equal. Extraocular motions intact. EARS: Hearing grossly intact. MOUTH: Oropharynx is normal. NECK: No adenopathy, no JVD. CHEST: Chest with clear breath sounds bilaterally. No wheezes, rales, or rhonchi. CARDIAC: Regular rate and rhythm. S1 and S2, without murmurs, gallops, or rubs. VASCULAR: No Edema. Peripheral pulses normal and equal in all extremities. ABDOMEN: Soft, without detectable tenderness. No sign of distention. No rebound or guarding, and no masses palpated. Bowel Sounds normal. MUSCULOSKELETAL: Good range of motion of all major joints. Extremities without clubbing, cyanosis or edema. NEUROLOGIC EXAM: Alert and oriented x 3. No focal sensory or strength deficits. Speech normal. Follows commands. PSYCHIATRIC: Mood normal. SKIN: Multiple tattoos. - Constitutional Vitals: Temp Pulse Resp BP Pulse Ox 98.2 F 75 18 108/60 97 01/14/17 00:25 01/14/17 00:25 01/14/17 00:25 01/14/17 00:25 01/14/17 00:25 Plan Activity: advance as tolerated, fall precautions Diet: diabetic Special Instructions: record daily weights, record daily BP diary, record blood sugar diary Follow up with: [facility] [Outside] - 7 Days Prescriptions: Insulin NPH, Human [NovoLIN N] See Protocol SUB-Q ACHS 30 Days units Insulin NPH/Regular [NovoLIN 70/30] 22 unit SUB-Q BIDDIAB 30 Days units Other Discharge Orders: Glucometer (Amb) Location: Determined By Patient Glucometer supplies[Amb] Location: Determined By Patient
[2017-01-14] MEDS ORDERED: NACL 0.9% 1000 ML 1,000 ML IV ONE (09:46)
[2017-01-14] MEDS ORDERED: SODIUM BICARBONATE PO SCH (10:00)
[2017-01-14] MEDS ORDERED: Fluarix Quad 2017-2018(36 MOS+ IM ONE (12:00)
[2017-01-14] MEDS ORDERED: MYCELEX VG SCH (16:00)
== END 2017-01-14 15:25 | disposition home or self-care (01) | DRG 638 ==
LOC: ED 12:03 → CC1 01-13 01:15 → 3A 01-13 08:55
PROVIDERS: ADMIT Internal Medicine; ATTEND Internal Medicine
PROC: 3E0234Z Introduction of Serum, Toxoid and Vaccine into Muscle, Percutaneous Approach (ICD-10-PCS; principal; 2017-01-14)
DX: E11.10 Type 2 diabetes mellitus with ketoacidosis without coma (principal); E87.1 Hypo-osmolality and hyponatremia; E88.81 Metabolic syndrome and other insulin resistance; E66.9 Obesity, unspecified; F17.200 Nicotine dependence, unspecified, uncomplicated; Z71.6 Tobacco abuse counseling; Z91.19 Patient's noncompliance with other medical treatment and regimen; Z83.3 Family history of diabetes mellitus; Z82.49 Family history of ischemic heart disease and other diseases of the circulatory system; Z23 Encounter for immunization; Z68.54 Body mass index [BMI] pediatric, 95th percentile for age to less than 120% of the 95th percentile for age
CPT/HCPCS: 36415; 80048; 80053; 81001; 81025; 82010; 82805; 82962; 83036; 83735; 84100; 85025; 90686; 93005; 93010; 96361; 96372; 96374; 96375; 99406; J1815; J2405; J7030

== ENCOUNTER 2017-08-31 12:15 | Emergency (ER) | payer MEDICAID ==
[2017-08-31 13:38] LABS: BUN/Creatinine Ratio 16; Blood Urea Nitrogen 11 mg/dL (7-17); Calcium 9.6 mg/dL (8.4-10.2); Hemolysis Index 4
[2017-08-31 13:52] LABS: Basophils # (Auto) 0.1 K/mm3 (0.0-0.1); Basophils % (Auto) 1.3 % (0.0-1.8); Eosinophils # (Auto) 0.1 K/mm3 (0.0-0.4); Eosinophils % (Auto) 1.4 % (0.0-4.3); Hematocrit 40.8 % (30.3-42.9); Hemoglobin 13.3 gm/dl (10.1-14.3); Lymphocytes # (Auto) 1.7 K/mm3 (1.2-5.4); Lymphocytes % (Auto) 31.6 % (13.4-35.0); Mean Corpuscular HGB Conc 33 % (30-34); Mean Corpuscular Hemoglobin 30 pg (28-32); Mean Corpuscular Volume 92 fl (79-97); Monocytes # (Auto) 0.5 K/mm3 (0.0-0.8); Monocytes % (Auto) 9.1 % (0.0-7.3); Platelet Count 259 K/mm3 (140-440); Red Blood Count 4.46 M/mm3 (3.65-5.03); Red Cell Distribution Width 13.1 % (13.2-15.2)
[2017-08-31 13:53] LABS: Bilirubin,Urine NEG (Negative); Blood,Urine NEG (Negative); Color,Urine Straw (Yellow); Protein,Urine <15 mg/dL mg/dL (Negative); Urobilinogen,Urine < 2.0 mg/dL (<2.0)
[2017-08-31 14:08] LABS: HCG Qualitative,Urine Negative (Negative)
[2017-08-31] MEDS ORDERED: HumuLIN R IV ONE ×2 (14:09→15:45)
[2017-08-31] MEDS ORDERED: NACL 0.9% 1000 ML 1,000 ML IV ONE ×2 (14:09→15:58)
--- NOTE | 2017-08-31 14:11 | Emergency Department Report ---
ED General Adult HPI - General Chief complaint: Hyperglycemia Stated complaint: FLUIDS IN BODY Time Seen by Provider: 08/31/17 13:59 Source: patient, RN notes reviewed, old records reviewed Mode of arrival: Ambulatory Limitations: No Limitations - History of Present Illness Initial comments: This is a 21-year-old female, previously known to this provider, has a past medical history of diabetes, medication noncompliance and nicotine dependence. Presents to the ER with a complaint of polyuria, polydipsia, generalized weakness and extremity cramping. Symptoms are constant, did not radiate anywhere, and do not have exacerbating or relieving factors. Patient reports compliance with her medications and denies dietary indiscretions. -: Gradual Location: left, right, lower extremity Radiation: non-radiation Quality: aching Consistency: constant Improves with: none Worsens with: none Associated Symptoms: denies: confusion, chest pain, cough, diaphoresis, fever/ chills, headaches, loss of appetite, malaise, nausea/vomiting, rash, seizure, shortness of breath, syncope, weakness - Related Data Previous Rx's Medication Instructions Recorded Last Taken Type Insulin NPH, Human [NovoLIN N] See Protocol SUB-Q ACHS 30 Days 01/14/17 Unknown Rx units Insulin NPH/Regular [NovoLIN 70/30] 22 unit SUB-Q BIDDIAB 30 Days 01/14/17 Unknown Rx units Allergies Allergy/AdvReac Type Severity Reaction Status Date / Time No Known Allergies Allergy Verified 01/13/17 01:25 ED Review of Systems ROS: Stated complaint: FLUIDS IN BODY Other details as noted in HPI Comment: All other systems reviewed and negative Endocrine: increased thirst, increased urine ED Past Medical Hx - Past Medical History Hx Diabetes: Yes (STATES DIAGNOSED 2 MONTHS AGO) Additional medical history: Yeast inf - Surgical History Past Surgical History?: No - Social History Smoking Status: Current Every Day Smoker Substance Use Type: Alcohol - Medications Home Medications: Home Medications Medication Instructions Recorded Confirmed Last Taken Type Insulin NPH, Human [NovoLIN N] See Protocol SUB-Q ACHS 30 Days 01/14/17 Unknown Rx units Insulin NPH/Regular [NovoLIN 70/30] 22 unit SUB-Q BIDDIAB 30 Days 01/14/17 Unknown Rx units ED Physical Exam - General Limitations: No Limitations General appearance: alert, in no apparent distress - Head Head exam: Present: atraumatic, normocephalic - Eye Eye exam: Present: normal appearance, EOMI. Absent: nystagmus - ENT ENT exam: Present: normal exam, normal orophraynx, mucous membranes moist, normal external ear exam - Neck Neck exam: Present: normal inspection, full ROM - Respiratory Respiratory exam: Present: normal lung sounds bilaterally. Absent: respiratory distress - Cardiovascular Cardiovascular Exam: Present: regular rate, normal rhythm, normal heart sounds. Absent: bradycardia, tachycardia, irregular rhythm, systolic murmur, diastolic murmur, rubs, gallop - GI/Abdominal GI/Abdominal exam: Present: soft, normal bowel sounds. Absent: distended, tenderness, guarding, rebound, rigid, pulsatile mass - Extremities Exam Extremities exam: Present: normal inspection, full ROM, normal capillary refill , other (2+ pulses noted in the bilateral upper, lower extremities. Compartments soft. No long bony tenderness. The pelvis is stable.). Absent: pedal edema, joint swelling, calf tenderness - Back Exam Back exam: Present: normal inspection, full ROM. Absent: paraspinal tenderness , vertebral tenderness - Neurological Exam Neurological exam: Present: alert, oriented X3, CN II-XII intact, normal gait, other (Extraocular movements intact. Tongue midline. No facial droop. Facial sensation intact to light touch in the V1, V2, V3 distribution bilaterally. 5 and 5 strength in 4 extremities.. Sensation is intact to light touch in 4 extremities.). Absent: motor sensory deficit - Psychiatric Psychiatric exam: Present: normal affect, normal mood - Skin Skin exam: Present: warm, dry, intact, normal color. Absent: rash ED Course Vital Signs 08/31/17 12:27 Temperature 98.1 F Pulse Rate 104 H Respiratory 16 Rate Blood Pressure 146/94 O2 Sat by Pulse 97 Oximetry - Reevaluation(s) Reevaluation #1: 08/31/17 15:37 Differential diagnosis, including but not limited to: Hyperglycemia, hyperosmolar state, diabetic ketoacidosis, dehydration, medication noncompliance Assessment and plan: 21-year-old female with a primary complaint of hyperglycemia, which are studies do not show anion gap acidosis, she is found to have pseudohyponatremia, and hyperglycemia. She will be given IV fluids, IV insulin, and discharged once her hypoglycemia has resolved. She is afebrile with otherwise reassuring vital signs. We will recheck her blood pressure and heart rate, care will be transferred to the oncoming physician, Dr. Xiao, to follow-up on resolution of her metabolic derangement. ED Medical Decision Making - Lab Data Result diagrams: 08/31/17 13:03 08/31/17 13:09 Vital Signs 08/31/17 12:27 Temperature 98.1 F Pulse Rate 104 H Respiratory 16 Rate Blood Pressure 146/94 O2 Sat by Pulse 97 Oximetry Labs 08/31/17 08/31/17 08/31/17 12:35 12:53 12:53 WBC RBC Hgb Hct MCV MCH MCHC RDW Plt Count Lymph % (Auto) [place] % (Auto) Eos % (Auto) Baso % (Auto) Lymph # [place] # Eos # Baso # Seg Neutrophils % Seg Neutrophils # VBG pH Sodium Potassium Chloride Carbon Dioxide Anion Gap BUN Creatinine Estimated GFR BUN/Creatinine Ratio Glucose POC Glucose > 500 H Calcium Urine Color Straw Urine Turbidity Clear Urine pH 7.0 Ur Specific [place] 1.023 Urine Protein <15 mg/dl Urine Glucose (UA) >=500 Urine Ketones Tr Urine Blood Neg Urine Nitrite Neg Urine Bilirubin Neg Urine Urobilinogen < 2.0 Ur Leukocyte Esterase Neg Urine WBC (Auto) 1.0 Urine RBC (Auto) 1.0 U Epithel Cells (Auto) < 1.0 Urine HCG, Qual Negative 08/31/17 08/31/17 08/31/17 13:03 13:09 13:09 WBC 5.5 RBC 4.46 Hgb 13.3 Hct 40.8 MCV 92 MCH 30 MCHC 33 RDW 13.1 L Plt Count 259 Lymph % (Auto) 31.6 [place] % (Auto) 9.1 H Eos % (Auto) 1.4 Baso % (Auto) 1.3 Lymph # 1.7 [place] # 0.5 Eos # 0.1 Baso # 0.1 Seg Neutrophils % 56.6 Seg Neutrophils # 3.1 VBG pH 7.325 Sodium 127 L Potassium 4.9 Chloride 88.6 L Carbon Dioxide 23 Anion Gap 20 BUN 11 Creatinine 0.7 Estimated GFR > 60 BUN/Creatinine Ratio 16 Glucose 874 H* POC Glucose Calcium 9.6 Urine Color Urine Turbidity Urine pH Ur Specific [place] Urine Protein Urine Glucose (UA) Urine Ketones Urine Blood Urine Nitrite Urine Bilirubin Urine Urobilinogen Ur Leukocyte Esterase Urine WBC (Auto) Urine RBC (Auto) U Epithel Cells (Auto) Urine HCG, Qual Critical care attestation.: If time is entered above; I have spent that time in minutes in the direct care of this critically ill patient, excluding procedure time. ED Disposition Clinical Impression: Hyperglycemia Disposition: DC-01 TO HOME OR SELFCARE Is pt being admited?: No Does the pt Need Aspirin: No Condition: Stable Instructions: Diabetic Hyperglycemia (ED) Additional Instructions: Make certain to adhere to a diabetic diet as recommended by the [place] diabetes Association website, which can be looked at online. New current outpatient medications, and follow up with the primary care doctor within the next month. Please note that blood pressure was elevated and blood sugar was elevated as well while in the emergency department. Over fdc period of time, these factors can lead to risk for heart attack, stroke, disability. Please return to the ER right away with new pain, worsened pain, migration of pain, fevers, chills, lethargy, irritability, projectile vomiting, change in mental status, confusion, inability to tolerate liquid feeds. Referrals: PRIMARY [facility] [Primary Care Provider] - 3-[address] [facility] [Provider Group] - 3-5 Days
[2017-08-31 17:32] VITALS: BP 122/84
== END 2017-08-31 17:31 | disposition home or self-care (01) ==
LOC: ED 12:15
DX: E11.65 Type 2 diabetes mellitus with hyperglycemia (principal); F17.200 Nicotine dependence, unspecified, uncomplicated; Z79.4 Long term (current) use of insulin
CPT/HCPCS: 36415; 80048; 81001; 81025; 82805; 82947; 82962; 85025; 96361; 96374; 96376; 99284; J7030; J1815